=== PATIENT | female | born 1990 | race African-American/Black ===

== ENCOUNTER 2023-07-17 07:35 | Emergency (ER) | payer MEDICAID ==
[~2023-07-17] VITALS: Ht 167.6 cm; Wt 70.2 kg
[2023-07-17 07:37] VITALS: TEMP 98
[2023-07-17] MEDS ORDERED: dexamethasone sod phosphate 10mg/ml inj IV STA (09:13)
[2023-07-17] MEDS ORDERED: famotidine/PF 10 mg/ml inj IV ONE (09:15)
[2023-07-17] MEDS ORDERED: diphenhydrAMINE 50 mg/ml inj IV ONE (09:15)
[2023-07-17 09:51] LABS: URINE HCG POSITIVE (NEG)
[2023-07-17 10:18] LABS: URINE AMPHETAMINE SCREEN POSITIVE (Neg); URINE BARBITUATE SCREEN NEGATIVE (Neg); URINE BENZODIAZEPINES SCREEN NEGATIVE (Neg); URINE CANNABINOID SCREEN POSITIVE (Neg); URINE COCAINE SCREEN NEGATIVE (Neg); URINE METHADONE SCREEN NEGATIVE (Neg); URINE OPIATE SCREEN NEGATIVE (Neg); URINE PHENCYCLIDINE SCREEN NEGATIVE (Neg)
[2023-07-17 10:25] LABS: ALBUMIN 3.4 G/DL (3.4-5.0); ANION GAP 8 (8-16); BLOOD UREA NITROGEN 11 MG/DL (7-18); BUN/CREATININE RATIO 16.4 (10.0-20.0); C-REACTIVE PROTEIN 0.07 MG/DL (0.0-0.5); CALCIUM 9.1 MG/DL (8.5-10.1); CHLORIDE 102 MMOL/L (99-107); CREATININE 0.67 MG/DL (0.40-0.90); GLUCOSE 80 MG/DL (70-104); POTASSIUM 3.6 MMOL/L (3.5-5.1); SODIUM 136 MMOL/L (135-145); TOTAL CARBON DIOXIDE 25.9 MMOL/L (24-32); eCRCL 114 ML/MIN; eGFR > 90 ML/MIN
[2023-07-17 10:39] LABS: EOSINOPHILS # (AUTO) 0.2 X10'3 (0-0.9); HEMOGLOBIN 13.6 g/dl (12.0-16.0); MEAN CORPUSCULAR HGB CONC 33.8 g/dL (33.0-36.5)
[2023-07-17 10:43] LABS: BASOPHILS % (AUTO) 0.4 % (0-1); EOSINOPHILS % (AUTO) 1.6 % (0-6); HEMATOCRIT 40.2 % (35.0-45.0); LYMPHOCYTES # (AUTO) 2.1 X10'3 (1.1-4.8); LYMPHOCYTES % (AUTO) 21.4 % (21-51); MEAN CORPUSCULAR HEMOGLOBIN 29.6 PG (27.0-31.0); MEAN CORPUSCULAR VOLUME 87.6 FL (78-98); MEAN PLATELET VOLUME 7.5 FL (7.4-10.4); MONOCYTES # (AUTO) 0.8 X10'3 (0-0.9); MONOCYTES % (AUTO) 7.9 % (2-12); NEUTROPHILS # (AUTO) 6.7 X10'3 (1.8-7.7); NEUTROPHILS % (AUTO) 68.7 % (42-75); PLATELET COUNT 326 X10'3 (140-440); RED BLOOD COUNT 4.59 X10'6 (4.20-5.60); RED CELL DISTRIBUTION WIDTH 12.5 % (11.5-14.5); WHITE BLOOD COUNT 9.8 X10'3 (4.5-11.0)
[2023-07-17 11:00] LABS: BILIRUBIN,URINE NEGATIVE (Neg); CLARITY,URINE CLOUDY (Clear); COLOR,URINE YELLOW (Yellow); GLUCOSE, URINE NEGATIVE (Neg); KETONES,URINE NEGATIVE (Neg); LEUKOCYTE ESTERASE ,URINE NEGATIVE (Neg); NITRITES, URINE NEGATIVE (Neg); OCCULT BLOOD,URINE SMALL (Neg); PH,URINE 6.5 (4.8-8.0); PROTEIN,URINE NEGATIVE (Neg); UROBILINOGEN,URINE 0.2 E.U/dL (0.2-1.0)
[2023-07-17 11:24] LABS: UA COLLECTION TYPE NON-SPECIFIED
[2023-07-17 11:25] LABS: BACTERIA,URINE 3+ /HPF (Neg); SQUAMOUS EPITHELIAL CELL,UR MANY /LPF (FEW)
[2023-07-17] MEDS ORDERED: DIPH25CA52 PO (12:11)
[2023-07-17] MEDS ORDERED: PNV1TABL7 PO (12:11)
[2023-07-17 12:31] VITALS: BP 127/99; PULSE 123; RESP 18; O2SAT 100
== END 2023-07-17 12:35 | disposition home or self-care (01) ==
LOC: ER 07:36
DX: O26.891 Other specified pregnancy related conditions, first trimester (principal); T78.49XA Other allergy, initial encounter; F15.10 Other stimulant abuse, uncomplicated; F17.200 Nicotine dependence, unspecified, uncomplicated; Z91.018 Allergy to other foods
CPT/HCPCS: 36415; 80048; 80305; 81001; 81025; 84484; 85025; 85651; 86140; 96374; 96375; 99284; A6258; J1100; J1200; J3490

== ENCOUNTER 2023-11-26 13:35 | Outpatient (CLI) | payer MEDICAID ==
[~2023-11-26 13:35] MED LIST: DIPH25CA52 PO; PNV1TABL7 PO
== END 2023-11-26 23:59 | disposition home or self-care (01) ==
LOC: RAD 13:35
PROVIDERS: ATTEND Family Medicine
DX: O09.892 Supervision of other high risk pregnancies, second trimester (principal); Z3A.25 25 weeks gestation of pregnancy
CPT/HCPCS: 76811

== ENCOUNTER 2024-03-13 03:09 | Emergency (ER) | payer MEDICAID ==
[~2024-03-13] VITALS: Ht 170.2 cm; Wt 75.1 kg
[2024-03-13 04:21] LABS: BASOPHILS # (AUTO) 0.1 X10'3 (0-0.2); BASOPHILS % (AUTO) 0.8 % (0-1); EOSINOPHILS # (AUTO) 0.1 X10'3 (0-0.9); EOSINOPHILS % (AUTO) 0.5 % (0-6); HEMATOCRIT 38.8 % (35.0-45.0); LYMPHOCYTES # (AUTO) 2.4 X10'3 (1.1-4.8); LYMPHOCYTES % (AUTO) 17.7 % (21-51); MEAN CORPUSCULAR HEMOGLOBIN 29.3 PG (27.0-31.0); MEAN CORPUSCULAR HGB CONC 33.4 g/dL (33.0-36.5); MEAN CORPUSCULAR VOLUME 87.9 FL (78-98); MEAN PLATELET VOLUME 7.5 FL (7.4-10.4); MONOCYTES # (AUTO) 0.8 X10'3 (0-0.9); MONOCYTES % (AUTO) 5.7 % (2-12); NEUTROPHILS # (AUTO) 10.4 X10'3 (1.8-7.7); NEUTROPHILS % (AUTO) 75.3 % (42-75); PLATELET COUNT 431 X10'3 (140-440); RED BLOOD COUNT 4.42 X10'6 (4.20-5.60); RED CELL DISTRIBUTION WIDTH 13.9 % (11.5-14.5); WHITE BLOOD COUNT 13.8 X10'3 (4.5-11.0)
[2024-03-13 04:34] LABS: BILIRUBIN,URINE NEGATIVE (Neg); CLARITY,URINE CLOUDY (Clear); COLOR,URINE YELLOW (Yellow); GLUCOSE, URINE NEGATIVE (Neg); KETONES,URINE 40 mg/dl (Neg); LEUKOCYTE ESTERASE ,URINE LARGE (Neg); NITRITES, URINE NEGATIVE (Neg); OCCULT BLOOD,URINE LARGE (Neg); PROTEIN,URINE NEGATIVE (Neg); UROBILINOGEN,URINE 0.2 E.U/dL (0.2-1.0)
[2024-03-13 04:35] LABS: ALANINE AMINOTRANSFERASE 67 U/L (12-78); ALBUMIN 3.2 G/DL (3.4-5.0); ALBUMIN/GLOBULIN RATIO 0.8 (1.1-1.5); ALKALINE PHOSPHATASE 137 IU/L (46-116); ANION GAP 12 (8-16); ASPARTATE AMINO TRANSFERASE 46 U/L (10-37); BILIRUBIN,TOTAL 0.7 MG/DL (0.1-1.0); BLOOD UREA NITROGEN 20 MG/DL (7-18); BUN/CREATININE RATIO 19.2 (10.0-20.0); CALCIUM 9.8 MG/DL (8.5-10.1); CHLORIDE 105 MMOL/L (99-107); CREATININE 1.04 MG/DL (0.40-0.90); GLUCOSE 60 MG/DL (70-104); LIPASE 20 U/L (16-77); POTASSIUM 4.1 MMOL/L (3.5-5.1); SODIUM 143 MMOL/L (135-145); TOTAL CARBON DIOXIDE 26.4 MMOL/L (24-32); TOTAL PROTEIN 7.4 G/DL (6.4-8.2); eCRCL 76 ML/MIN; eGFR 74 ML/MIN
[2024-03-13 04:36] LABS: UA COLLECTION TYPE CLN CATCH MIDSTREAM
[2024-03-13 04:40] LABS: BACTERIA,URINE FEW /HPF (Neg); SQUAMOUS EPITHELIAL CELL,UR MODERATE /LPF (FEW); TRANSITIONAL EPI CELLS,URINE MODERATE /HPF
[2024-03-13 04:46] LABS: URINE AMPHETAMINE SCREEN POSITIVE (Neg); URINE BARBITUATE SCREEN NEGATIVE (Neg); URINE BENZODIAZEPINES SCREEN NEGATIVE (Neg); URINE CANNABINOID SCREEN NEGATIVE (Neg); URINE COCAINE SCREEN NEGATIVE (Neg); URINE METHADONE SCREEN NEGATIVE (Neg); URINE OPIATE SCREEN NEGATIVE (Neg); URINE PHENCYCLIDINE SCREEN NEGATIVE (Neg)
[2024-03-13 05:05] LABS: ETHANOL < 10 MG/DL (<10)
[2024-03-13] MEDS: acetaminophen 1,000mg/100ml IV 100 ML IV ONE (05:49)
[2024-03-13] MEDS: ketorolac trometh 15mg/ml vial 15 MG/ML ML IV ONE (05:49)
[2024-03-13 06:16] LABS: BETA HCG,QUANTITATIVE 136 mIU/ml
[2024-03-13] MEDS: labetalol 100mg tablet PO ONE (06:21)
[2024-03-13 07:15] VITALS: TEMP 98.5
[2024-03-13] MEDS ORDERED: CEPH-585 PO (07:15)
[2024-03-13] MEDS ORDERED: DOCU-148 PO (07:57)
[2024-03-13 08:12] VITALS: BP 144/104; PULSE 78; RESP 18; O2SAT 100
== END 2024-03-13 08:14 | disposition home or self-care (01) ==
LOC: ER 03:10
DX: R51.9 Headache, unspecified (principal); N39.0 Urinary tract infection, site not specified; O14.90 Unspecified pre-eclampsia, unspecified trimester; Z91.018 Allergy to other foods; Z79.2 Long term (current) use of antibiotics; Z79.899 Other long term (current) drug therapy
CPT/HCPCS: 36415; 80053; 80305; 80320; 81001; 83690; 84702; 85025; 86885; 86900; 86901; 87088; 96374; 96375; 99285; J0131; J1885

== ENCOUNTER 2024-12-14 11:05 | Emergency (ER) | payer MEDICAID ==
[~2024-12-14] VITALS: Ht 170.2 cm; Wt 70.0 kg
[~2024-12-14 11:05] MED LIST changes: +CEPH-585 PO; +DOCU-148 PO
[2024-12-14 11:08] VITALS: TEMP 98
--- NOTE | 2024-12-14 11:36 | Physician Documentation ---
History of Present Illness ~ Chief Complaint: Allergic Reaction Stated Complaint: ALLERGIC REACTION Time Seen by MD: 11:25 Primary Medical Doctor: yasmeen Damon 34-year-old female presenting after an allergic reaction. 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 She did not know that the cookie had coconut. Afterwards she started developing some itching and some swelling of her lip. She states that she went immediately to [facility] and got some Benadryl and took three Benadryl. After she took the Benadryl she states that her symptoms improved and are now essentially gone. She states that this occurred about 30- 40 minutes ago. Currently she states that she has for the most part asymptomatic. She usually has not EpiPen on her for situations like this however she states that she does not have one right now and needs a prescription for one. She otherwise denies any chest pain, shortness of breath or any other associated symptoms. Medication Reconciliation Allergies: Coded Allergies: coconut (Verified Allergy, Severe, ANAPHYLAXIS, 03/13/24) ibuprofen (Unverified Allergy, Mild, rash and swelling, 12/14/24) latex (Unverified Allergy, Unknown, 12/14/24) Scheduled Cephalexin*Monohydrate* (Keflex*), 2 CAP PO BID Diphenhydramine HCl (Diphenhydramine HCl), 1 CAP PO HS Docusate Sodium (Colace), 1 CAP PO Q12H Pnv Cmb#21/Iron/Folic Acid ( Complete Caplet), 1 EACH PO DAILY Past Medical History Past Medical History: No Pertinent History Past Surgical History: no surgical history Alcohol Use: None Drug Use: none Lives In: Home Review of Systems All Other Systems at this time: Reviewed and Negative Physical Exam Vital Signs: Temperature: 98.0, Source: Temporal, Heart Rate: 92, Respiratory Rate: 19, BP: 134/90, Pulse Oximetry: 99, Weight: 70.000 Oxygen Flow Rate: 0 Physical Exam I have reviewed the triage vitals. CONST: Well developed and well nourished. In no acute distress HENT: Head Atraumatic EYES: Pupils are equal, round and reactive to light. Normal conjunctiva NECK: Normal range of motion. Supple. CARDIO: Normal rate and regular rhythm. No murmurs, rubs, or gallops. S1, S2. PULM/CHEST: No respiratory distress. Lungs clear to auscultation. No wheeze ABD: Soft and nontender. Nondistended. Bowel sounds normal. No guarding. : Exam deferred MSK: No edema. No deformity. NEURO: Alert and oriented to person, place and time. Moving all extremities SKIN: Warm and dry. PSYCH: Normal mood and affect. Good eye contact. Progress Results/Orders Results/Orders Vital Signs 12/14/24 12/14/24 11:08 11:18 Temp 98.0 Pulse 95 92 Resp 16 19 B/P (MAP) 134/90 134/90 (105) Pulse Ox 99 99 O2 Flow Rate 0 Medical Decision Making Differential Diagnosis 34-year-old female presenting with an allergic reaction to coconut. Patient has already taken 75 mg of p.o. Benadryl prior to arrival. On my examination here today she has no signs or symptoms any longer. Her symptoms have fully resolved. Clinically she looks well. Her vitals are normal as well. I had a d iscussion with the patient regarding allergies and allergic reactions. At this point given that she is asymptomatic I do not believe any intervention in the ED is warranted. I will however prescribe her a Medrol Dosepak and advised her to start this medication should her symptoms start to return. Additionally advise her some Benadryl so she has some to take as needed for returning symptoms. I will also prescribe her an EpiPen so that she has one on hand in case she encounters such instances in the future. Patient advised to monitor his symptoms very closely for recurrence. Follow up closely with PCP in the next 2- 3 days as needed. Return to the ED immediately with any reoccurring symptoms. Departure Disposition: HOME / SELF CARE / HOMELESS Impression: Primary Impression: Acute allergic reaction Condition: Improved Discharge Instructions: Anaphylactic Reaction, Adult, [id number] Additional Instructions: Please monitor her symptoms for any recurrence. Should your symptoms start to come back you should start the Medrol Dosepak that is prescribed to you. Additionally you may take Benadryl as needed. I did also prescribe you a EpiPen that you may use for future instances of sudden allergic reactions. Please monitor your symptoms closely. Should they return and worsened acutely you must return immediately to the emergency department. Referrals: NO PRIMARY CARE PROVIDER (PCP) Prescriptions Epinephrine (Epipen 2-Mitchell) 0.3 Mg/0.3 Ml Auto.injct 1 SYR IM ONCE for 1 Day, #1 PKT 0 Refills Prov: AYLA CASTILLO MD 12/14/24 Diphenhydramine Hcl (Benadryl) 25 Mg Capsule 1 CAP PO Q6H PRN for allergies, #90 CAP 0 Refills Prov: AYLA CASTILLO MD 12/14/24 Methylprednisolone (Medrol Dosepak) 4 Mg Tab.ds.pk 0 PO UD, #21 TAB 0 Refills take 6 Pills Day 1, 5 Pills Day 2, 4 Pills Day 3, 3 Pills Day 4, 2 Pills Day 5 and 1 pill Day 6 Prov: AYLA CASTILLO MD 12/14/24 Signature Scribe Signature: 1 Attestation: 1 AYLA CASTILLO MD Dec 14, 2024 11:36
[2024-12-14] MEDS ORDERED: METH4TAB81 PO (11:38)
[2024-12-14] MEDS ORDERED: EPIN0.3P3 IM (11:38)
[2024-12-14] MEDS ORDERED: DIPH25CA83 PO (11:38)
[2024-12-14 11:43] VITALS: BP 135/99; PULSE 80; RESP 15; O2SAT 100
== END 2024-12-14 11:49 | disposition home or self-care (01) ==
LOC: ER 11:06
DX: T78.40XA Allergy, unspecified, initial encounter (principal); Z88.6 Allergy status to analgesic agent; X58.XXXA Exposure to other specified factors, initial encounter
CPT/HCPCS: 99283